=== PATIENT | male | born 1990 | race Two or more races ===

== ENCOUNTER 2023-09-21 02:38 | Emergency (ER) | payer SELFPAY ==
[~2023-09-21] VITALS: Ht 172.7 cm; Wt 93.2 kg
[2023-09-21 03:32] LABS: Basophils # (auto) 0 10 ^3/uL (0-0.2); Basophils % (auto) 0.4 % (0.0-2.0); Eosinophils # (auto) 0.1 10 ^3/uL (0-0.8); Hematocrit 47.3 % (41.0-53.0); Hemoglobin 16.1 g/dL (13.5-17.5); Lymphocytes % (auto) 13.4 % (10.0-50.0); Mean Corpuscular Hemoglobin 29.5 pg (28.0-32.0); Mean Corpuscular Hgb Conc. 34.1 g/dL (32.0-36.0); Mean Corpuscular Volume 86.5 fL (80.0-100.0); Monocytes # (auto) 0.3 10 ^3/uL (0-1.3); Monocytes % (auto) 4.5 % (0.0-12.0); Neutrophils # (auto) 6.2 10 ^3/uL (1.6-8.6); Neutrophils % (auto) 80.7 % (37.0-80.0); Nucleated Red Blood Cells % 0.1 %; Red Blood Cells 5.46 10^6/uL (4.5-5.90); Red Cell Distribution Width 13.5 % (11.8-14.3); White Blood Cell 7.6 10^3/uL (4.4-10.8)
[2023-09-21 03:38] LABS: Alanine Aminotransferase 38 U/L (7-40); Albumin 4.7 g/dL (3.2-4.8); Alkaline Phosphatase 97 U/L (46-116); Anion Gap 7 (5-15); Aspartate Aminotransferase 27 U/L (13-40); BUN/Creatinine Ratio 8.6 (10.0-20.0); Bilirubin, Total 0.5 mg/dL (0.2-1.0); Blood Urea Nitrogen 11 mg/dL (9-23); Calcium 9.8 mg/dL (8.7-10.4); Carbon Dioxide 23 mmol/L (20-30); Chloride 105 mmol/L (98-107); Glucose 164 mg/dL (74-106); Lipase 59 U/L (12-53); Sodium 135 mmol/L (136-145); Total Protein 7.4 g/dL (5.7-8.2)
[2023-09-21 04:39] LABS: Urine Bacteria NONE SEEN /hpf (None Seen); Urine Blood Negative /uL (Negative); Urine Clarity Clear (Clear); Urine Color Yellow (Yellow); Urine Protein, UAD Negative (Negative); Urine Specific Gravity 1.024 (1.001-1.035); Urine Urobilinogen Normal (Negative); Urine WBC 1 /hpf (0 - 3); Urine pH 5.5 (5.0-8.0)
[2023-09-21] MEDS ORDERED: cefTRIAXone 1GM/50ML D5W 50 ML IV ONE (07:00)
[2023-09-21] MEDS ORDERED: SODIUM CHLORIDE 0.9% 1,000 ML IV ONE (07:00)
[2023-09-21] MEDS ORDERED: metroNIDAZOLE 500MG/100ML 100 ML IV ONE (07:00)
[2023-09-21] MEDS ORDERED: MAALOX PLUS or MAALOX 30 ML PO ONE (07:45)
[2023-09-21] MEDS ORDERED: LIDOCAINE VISCOUS 2% 15ML UD PO ONE (07:45)
[2023-09-21] MEDS ORDERED: DONNATAL 5ml ORAL Elix (BELLADONNA ALK-PHENOBARB) PO ONE (07:45)
[2023-09-21] MEDS ORDERED: PANT40TA2 PO (09:11)
[2023-09-21] MEDS ORDERED: METR-344 PO (09:11)
[2023-09-21 09:22] VITALS: BP 127/77; PULSE 88; RESP 16; TEMP 98; O2SAT 100
== END 2023-09-21 09:24 | disposition home or self-care (01) ==
LOC: ER 02:38
DX: K29.70 Gastritis, unspecified, without bleeding (principal); I10 Essential (primary) hypertension; I48.91 Unspecified atrial fibrillation
CPT/HCPCS: 36415; 74176; 80053; 81001; 83690; 84484; 85025; 96365; 96368; 99285; J0696; J3490; J7030

== ENCOUNTER 2025-10-28 19:53 | Emergency (ER) | payer MEDICAID, OTHER ==
[~2025-10-28] VITALS: Ht 172.7 cm; Wt 98.3 kg
[~2025-10-28 19:53] MED LIST: METR-344 PO; PANT40TA2 PO
[2025-10-28] MEDS ORDERED: ZOFR4T PO (21:30)
[2025-10-28] MEDS ORDERED: ACET500T58 PO (21:30)
--- NOTE | 2025-10-28 21:31 | ED.PDOC ---
History of Present Illness HPI Comments 35-year-old male presents to ER with complaints of flu-like symptoms x2 days. Patient reports that he has been experiencing intermittent nausea/vomiting/diarrhea, fever and intermittent generalized headache x2 days. Reports that he last took [id number] DayQuil for his symptoms this morning and rates his current pain a 7/10. Patient presents to ER ambulatory on arrival, with steady gait, in no distress. Denies dizziness, shortness of breath, cough, chest pain, abdominal pain, known exposure to sick contacts/food poisoning, bloody diarrhea, changes in urination or any further symptoms/complaints Chief Complaint: Flu like Time Seen by MD: 20:00 Primary Care Provider: UNKNOWN Reviewed Notes: Nurses Notes, Medications, Allergies Information Source: Patient Mode of Arrival: Ambulatory Past Medical History PAST MEDICAL HISTORY: AFIB, HTN Surgical History: Hernia Repair Family History Family History: Unknown Social History Smoker: Non-Smoker, Cigarettes Alcohol: Occasionally Drugs: Denies Drug Use Lives In: Home Constitutional: See HPI EENTM: No Symptoms Reported Respiratory: No Symptoms Reported Cardiovascular: No Symptoms Reported Gastrointestinal: See HPI Genitourinary: No Symptoms Reported Neurological: See HPI Musculoskeletal: No Symptoms Reported Integumentary: No Symptoms Reported Allergic/Immunocompromised: others (Denies) Hematologic/Lymphatic: No Symptoms Reported Endocrine: No Symptoms Reported Psychiatric: No symptoms Reported Physical Exam General Appearance: No Apparent Distress, Obese HEENT: Normal ENT Inspection, PERRL/EOMI, Pharynx Normal, TMs Normal Neck: Full Range of Motion, Non-Tender, Normal Respiratory: Chest Non-Tender, Lungs Clear, No Accessory Muscle Use, No Respiratory Distress, Normal Breath Sounds Cardiovascular: No Murmur, No Gallop, Regular Rate/Rhythm Breast Exam: Deferred Gastrointestinal: NOT DONE Genitalia: Deferred Pelvic: Deferred Rectal: Deferred Extremities: Normal capillary refill, Normal range of motion Neurologic: Alert, carpet inspector finished II-XII nml as Tested, No Motor Deficits, Normal Affect, Normal Mood, No Sensory Deficits Cerebellar Function: Normal Reflexes: Normal Skin: Dry, Normal Color, Warm Lymphatic: No Adenopathy Was a procedure done? Was a procedure done?: No Sedation Sedation?: No Fever Differential Dx Differential Diagnosis: Sepsis, Pharyngitis, Other (COVID-19, INFLUENZA, APPENDICITIS) X-Ray, Labs, Meds, VS Vital Signs Date Time Temp Pulse Resp B/P (MAP) Pulse Ox O2 Delivery O2 Flow Rate FiO2 10/28/25 21:37 98.4 106 20 121/75 (90) 98 98.4 10/28/25 21:37 106 20 98 Room Air 10/28/25 19:59 Room Air* 0 21 10/28/25 19:59 99.5 104 12 113/92 96 99.5 Lab Test 10/28/25 21:29 10/28/25 21:10 Range/Units White Blood Count 5.4 4.4-10.8 10^3/uL Red Blood Count 6.07 H 4.5-5.90 10^6/uL Hemoglobin 17.5 13.5-17.5 g/dL Hematocrit 50.4 41.0-53.0 % Mean Corpuscular Volume 83.0 80.0-100.0 fL Mean Corpuscular Hemoglobin 28.8 28.0-32.0 pg Mean Corpuscular Hemoglobin Concent 34.7 32.0-36.0 g/dL Red Cell Distribution Width 14.7 H 11.8-14.3 % Platelet Count 185 140-450 10^3/uL Mean Platelet Volume 8.7 6.9-10.8 fL Neutrophils (%) (Auto) 73.8 37.0-80.0 % Lymphocytes (%) (Auto) 16.7 10.0-50.0 % Monocytes (%) (Auto) 6.0 0.0-12.0 % Eosinophils (%) (Auto) 3.2 0.0-7.0 % Basophils (%) (Auto) 0.3 0.0-2.0 % Neutrophils # (Auto) 4.0 1.6-8.6 10 ^3/uL Lymphocytes # (Auto) 0.9 0.4-5.4 10 ^3/uL Monocytes # (Auto) 0.3 0-1.3 10 ^3/uL Eosinophils # (Auto) 0.2 0-0.8 10 ^3/uL Basophils # (Auto) 0 0-0.2 10 ^3/uL Nucleated Red Blood Cells 3.5 % Sodium Level 138 136-145 mmol/L Potassium Level 3.7 3.5-5.1 mmol/L Chloride Level 102 98-107 mmol/L Carbon Dioxide Level 28 20-31 mmol/L Anion Gap 8 5-15 Blood Urea Nitrogen 12 9-23 mg/dL Creatinine 1.55 H 0.700-1.30 mg/dL Glomerular Filtration Rate Calc 60 >90 mL/min BUN/Creatinine Ratio 7.7 L 10.0-20.0 Serum Glucose 97 74-106 mg/dL Calcium Level 9.9 8.7-10.4 mg/dL Lipase 29 12-53 U/L Urine Color Yellow Yellow Urine Clarity Clear Clear Urine pH 5.5 5.0-9.0 Urine Specific [place] 1.023 1.001-1.035 Urine Protein Negative Negative Urine Ketones Negative Negative Urine Blood Negative Negative /uL Urine Nitrite Negative Negative Urine Bilirubin Negative Negative Urine Urobilinogen Normal Negative mg/dL Urine Leukocyte Esterase Negative Negative /uL Urine RBC None seen 0 - 3 /hpf Urine Microscopic WBC 1 0-3 /HPF Urine Squamous Epithelial Cells Few <5 /hpf Urine Bacteria None seen None Seen /hpf Urine Glucose Normal Normal mg/dL Influenza Type A Antigen Pending Influenza Type B Antigen Pending SARS-CoV-2 Antigen (Rapid) Negative NEGATIVE Current Medications Medications (Trade) Dose Ordered Sig/Filomena Route Start Time Stop Time Status Last Admin Acetaminophen (Tylenol Tablet) 650 mg ONCE ONCE PO 10/28/25 21:15 10/28/25 21:16 DC 10/28/25 21:50 Ondansetron HCl (Zofran Po) 4 mg ONCE ONCE PO 10/28/25 21:15 10/28/25 21:16 DC 10/28/25 21:50 TYLENOL 650 MG P.O. ORDERED ZOFRAN 4 MG P.O. ORDERED CBC REVIEWED WITHOUT ANY SIGNIFICANT ABNORMALITIES BMP REVIEWED - GFR 60, CREATININE 1.55 LIPASE REVIEWED - NORMAL URINALYSIS REVIEWED WITHOUT ANY SIGNIFICANT ABNORMALITIES SWAB RESULTS REVIEWED- NEGATIVE PATIENT WELL APPEARING, TOLERATING P.O. INTAKE WELL AND IN NO DISTRESS PRIOR TO DISCHARGE DIET EDUCATION DISCUSSED ADVISED TO FOLLOW UP WITH PCP IN 1-2 DAYS PATIENT VERBALIZED UNDERSTANDING AND AGREEABLE WITH CURRENT PLAN OF CARE ADVISED TO RETURN TO ER IMMEDIATELY IF SYMPTOMS WORSEN Time of 1ST Reevaluation: 21:28 Reevaluation 1ST: N/A Patient Education/Counseling: Diagnosis, Treatment, Prognosis, Need For Follow Up Family Education/Counseling: No Family Present SEPSIS Sepsis Screen Date sepsis recognized/suspect: Oct 28, 2025 Time Sepsis recognized/suspect: 1958 Recent Procedure: No On Antibiotic Therapy: No Respiratory Rate >20: No Heart Rate >90: No Temp<36 C (96.8 F) or >38.3 C: No SBP <90 or MAP <65 mmHG: No New Acute Mental Status Change: No Is the patient on CPAP, BIPAP,: No Physician Orders Rapid Influenza A&B (10/28/25 21:03) Vital Signs Date Time Temp Pulse Resp B/P (MAP) Pulse Ox O2 Delivery O2 Flow Rate FiO2 10/28/25 21:37 98.4 106 20 121/75 (90) 98 98.4 10/28/25 21:37 106 20 98 Room Air 10/28/25 19:59 Room Air* 0 21 10/28/25 19:59 99.5 104 12 113/92 96 99.5 Laboratory Tests Test 10/28/25 21:29 White Blood Count 5.4 10^3/uL (4.4-10.8) Medications Medications Dose Ordered Sig/Filomena Route Start Time Stop Time Status Last Admin Dose Admin Acetaminophen 650 mg ONCE ONCE PO 10/28/25 21:15 10/28/25 21:16 DC 10/28/25 21:50 Ondansetron HCl 4 mg ONCE ONCE PO 10/28/25 21:15 10/28/25 21:16 DC 10/28/25 21:50 Departure 1 Departure Time of Disposition: 22:12 Impression: Primary Impression: Viral gastroenteritis Additional Impression: Dehydration Disposition: 01 HOME / SELF CARE / HOMELESS Condition: Stable e-Prescriptions Ondansetron Odt 4MG Tab (ZOFRAN PO) 4 Mg Tb 4 MG PO Q8HPRN, #10 TAB 0 Refills ODT TAB-DISSOLVE IN MOUTH, THEN SWALLOW Prov: TRACY DUBON 10/28/25 Acetaminophen (Acetaminophen) 500 Mg Tab 500 MG PO Q4HPRN, #30 TAB 0 Refills Prov: TRACY DUBON 10/28/25 Discharged With: Self Critical Care Note Critical Care Time?: No Stability Stability form required: No Heart Score Heart Score: Heart Score Response (Comments) Value History N/A 0 EKG N/A 0 Age N/A 0 Risk Factors N/A 0 Troponin N/A 0 Total 0 TRACY DUBON Oct 28, 2025 21:31
[2025-10-28 21:37] VITALS: BP 121/75; PULSE 106; RESP 20; TEMP 98.4; O2SAT 98
[2025-10-28 21:46] LABS: Mean Corpuscular Hemoglobin 28.8 pg (28.0-32.0)
[2025-10-28 21:48] LABS: Hematocrit 50.4 % (41.0-53.0); Hemoglobin 17.5 g/dL (13.5-17.5); Mean Corpuscular Volume 83.0 fL (80.0-100.0)
[2025-10-28] MEDS: ONDANSETRON ODT 4 MG TAB PO ONE (21:50)
[2025-10-28] MEDS: ACETAMINOPHEN 325 MG TAB PO ONE (21:50)
[2025-10-28 21:55] LABS: Chloride 102 mmol/L (98-107); Potassium 3.7 mmol/L (3.5-5.1); Sodium 138 mmol/L (136-145)
[2025-10-28 21:56] LABS: Anion Gap 8 (5-15); Calcium 9.9 mg/dL (8.7-10.4); Carbon Dioxide 28 mmol/L (20-31)
[2025-10-28 21:56] LABS: Urine Protein, UAD Negative (Negative)
[2025-10-28 21:57] LABS: Nucleated Red Blood Cells % 3.5 %
[2025-10-28 22:01] LABS: BUN/Creatinine Ratio 7.7 (10.0-20.0); Blood Urea Nitrogen 12 mg/dL (9-23); Glucose 97 mg/dL (74-106)
[2025-10-28 22:02] LABS: Lipase 29 U/L (12-53)
[2025-10-28 22:08] LABS: COVID19 ANTIGEN SOFIA FIA NEGATIVE (NEGATIVE)
== END 2025-10-28 23:24 | disposition home or self-care (01) ==
LOC: ER 19:53
DX: A08.4 Viral intestinal infection, unspecified (principal); E86.0 Dehydration; F10.90 Alcohol use, unspecified, uncomplicated; I10 Essential (primary) hypertension; I48.91 Unspecified atrial fibrillation; Z98.890 Other specified postprocedural states; Z20.822 Contact with and (suspected) exposure to COVID-19
CPT/HCPCS: 36415; 80048; 81001; 83690; 85025; 87426; 87804; 99283; Q0162